=== PATIENT | female | born 1955 ===

== ENCOUNTER 2025-05-17 00:25 | Day surgery (SDC) | payer OTHER ==
[2025-05-17] MEDS ORDERED: Lidocaine HCl 4% Cream 5 GM ONE (13:30)
== END 2025-05-17 23:00 | disposition home or self-care (01) ==
LOC: WOUND 00:25
DX: E11.621 Type 2 diabetes mellitus with foot ulcer (principal); L97.423 Non-pressure chronic ulcer of left heel and midfoot with necrosis of muscle; I10 Essential (primary) hypertension; E11.42 Type 2 diabetes mellitus with diabetic polyneuropathy; J44.9 Chronic obstructive pulmonary disease, unspecified; I25.10 Atherosclerotic heart disease of native coronary artery without angina pectoris; Z88.8 Allergy status to other drugs, medicaments and biological substances
CPT/HCPCS: A9270; G0463

== ENCOUNTER 2025-05-24 01:07 | Day surgery (SDC) | payer MEDICARE ==
[2025-05-24] MEDS ORDERED: Lidocaine HCl 4% Cream 5 GM ONE (11:36)
== END 2025-05-24 23:54 | disposition home or self-care (01) ==
LOC: WOUND 01:07
DX: E11.621 Type 2 diabetes mellitus with foot ulcer (principal); L97.422 Non-pressure chronic ulcer of left heel and midfoot with fat layer exposed; I50.40 Unspecified combined systolic (congestive) and diastolic (congestive) heart failure; J44.9 Chronic obstructive pulmonary disease, unspecified; E11.51 Type 2 diabetes mellitus with diabetic peripheral angiopathy without gangrene; I87.2 Venous insufficiency (chronic) (peripheral); E11.42 Type 2 diabetes mellitus with diabetic polyneuropathy
CPT/HCPCS: A9270

== ENCOUNTER 2025-06-07 08:03 | Day surgery (SDC) | payer MEDICARE ==
[~2025-06-07 08:03] MED LIST: ALEN70 PO; ATOR40TA PO; CEFU250T47 PO; FEBU40TA; HYDSUL200 PO; JARDIANCE10 MG PO; LOSA25 PO; METFORMIN HCL500 M2 PO; OXAYDO5 M1 PO; PREG200 PO; Percocet 5-3251 EACH PO; ROPI.25 PO; VISBIOME 112.51 EACH PO
[2025-06-07] MEDS ORDERED: Lidocaine HCl 4% Cream 5 GM ONE (11:03)
== END 2025-06-07 23:00 | disposition home or self-care (01) ==
LOC: WOUND 08:03
DX: E11.621 Type 2 diabetes mellitus with foot ulcer (principal); L97.422 Non-pressure chronic ulcer of left heel and midfoot with fat layer exposed; S51.811A Laceration without foreign body of right forearm, initial encounter; E11.42 Type 2 diabetes mellitus with diabetic polyneuropathy; E11.51 Type 2 diabetes mellitus with diabetic peripheral angiopathy without gangrene; I87.2 Venous insufficiency (chronic) (peripheral); W19.XXXA Unspecified fall, initial encounter
CPT/HCPCS: A9270